=== PATIENT | female | born 1980 | race Two or more races ===

== ENCOUNTER 2025-02-05 09:35 | Outpatient (CLI) | payer OTHER | END 2025-02-05 09:40 | disposition home or self-care (01) | LOC: TOM 09:35 | PROVIDERS: ATTEND Specialist | DX: N70.11 Chronic salpingitis (principal) ==

== ENCOUNTER 2025-03-04 09:47 | Outpatient (CLI) | payer OTHER | END 2025-03-04 09:54 | disposition home or self-care (01) | LOC: TOM 09:47 | PROVIDERS: ATTEND Specialist | DX: N70.11 Chronic salpingitis (principal) ==